=== PATIENT | female | born 1995 | race Native Hawaiian/Other Pacific Islander ===

== ENCOUNTER 2021-09-19 13:16 | Emergency (ER) | payer OTHER ==
[~2021-09-19] VITALS: Ht 154.9 cm; Wt 63.5 kg
[2021-09-19 13:24] VITALS: TEMP 98.3
[2021-09-19 13:43] VITALS: BP 126/78
== END 2021-09-19 13:44 | disposition home or self-care (01) ==
LOC: ED 13:16
DX: U07.1 COVID-19 (principal); R00.0 Tachycardia, unspecified
CPT/HCPCS: 87635; 99282; U0003